=== PATIENT | female | born 1985 | race Caucasian/White ===

== ENCOUNTER 2019-11-19 17:00 | Inpatient (IN) | payer OTHER ==
[2019-11-19 17:46] VITALS: BMI 30.2
[2019-11-19] MEDS ORDERED: AMPICILLIN - 2 GM in SODIUM CHLORIDE 100 ML IVPB ONE (17:52)
[2019-11-19] MEDS ORDERED: ELECTROLYTE-148 SOLN 1,000 ML IV SCH (18:00)
[2019-11-19] MEDS ORDERED: CITRIC ACID/SODIUM CITRATE 30 ML UNIT-DOSE CUP PO ONE (18:34)
--- NOTE | 2019-11-19 18:41 | HP ---
Past Medical History - Primary Care Physician PCP:: Michael Luke - Admission Chief Complaint: 39 weeks, previous c/s, ROM , labor , variable decel. AMA History of Present Illness: 34 yo f g 89 yo f one vaginal delivery followed by c/s , was scheduled for repeat c/s c/o ROM, clear fluid , with irregular contraction . requesting repeat c/s, no bleeding, no fever History Source: Patient Limitations to Obtaining History: No Limitations - Past Medical History ...: 4 ...Para: 2 ...Term: 2 ...Spon : 1 ...LMP: 02/15/19 ... Weeks Gestation by Dates: 39.4 ...EDC by Dates: 11/22/19 - Past Surgical History Past Surgical History: Yes: Hx Myomectomy: No Hx Transabdominal Cerclage: No - Smoking History Smoking history: Never smoked Have you smoked in the past 12 months: No Aproximately how many cigarettes per day: 0 - Alcohol/Substance Use Hx Alcohol Use: No - Social History Usual Living Arrangement: Yes: With Spouse History of Recent Travel: No Home Medications - Allergies Allergies/Adverse Reactions: Allergies Allergy/AdvReac Type Severity Reaction Status Date / Time No Known Allergies Allergy Verified 11/19/19 17:49 - Home Medications Home Medications: Ambulatory Orders Tablet 1 tab PO DAILY 11/19/19 Review of Systems - Review of Systems Constitutional: reports: No Symptoms Eyes: reports: No Symptoms HENT: reports: No Symptoms Neck: reports: No Symptoms Cardiovascular: reports: No Symptoms Respiratory: reports: No Symptoms Gastrointestinal: reports: No Symptoms Genitourinary: reports: No Symptoms Breasts: reports: No Symptoms Reported Musculoskeletal: reports: No Symptoms Integumentary: reports: No Symptoms Neurological: reports: No Symptoms Endocrine: reports: No Symptoms Hematology/Lymphatic: reports: No Symptoms Psychiatric: reports: No Symptoms Physical Exam - Maternity Vital Signs: Vital Signs Temperature 98.3 F 11/19/19 17:37 Pulse Rate 82 11/19/19 17:37 Respiratory Rate 18 11/19/19 17:37 Blood Pressure 126/80 11/19/19 17:37 O2 Sat by Pulse Oximetry (%) Constitutional: Yes: Well Nourished, No Distress, Calm Eyes: Yes: WNL, Conjunctiva Clear, EOM Intact HENT: Yes: WNL, Atraumatic, Normocephalic Neck: Yes: WNL, Supple, Trachea Midline Cardiovascular: Yes: WNL, Regular Rate and Rhythm Breast(s): Yes: WNL - Abdominal Exam/OB Fundal Height: 38 Number of Fetuses: Single Presentation: Vertex Contractions: Yes Regularity: Irregular Intensity: Mild/Mod Monitor Mode: External Heart Rate Location: [facility] Category: II Accelerations: Non-Uniform Decelerations: None - Vaginal Exam/OB Vaginal Bleediing: No Speculum Exam: No Dilatation (cm): 2 cm Effacement (%): 25 Amniotic Membrane Status: Ruptured Nitrazine Test: Positive Amniotic Fluid: Yes: Clear Presentation: Vertex/Position Station: -3 - Physical Exam Musculoskeletal: Yes: WNL Extremities: Yes: WNL Edema: Yes Edema: LLE: Trace, RLE: Trace Deep Tendon Reflex Grade: Normal +2 Psychiatric: Yes: WNL Hemorrhage Risk Assessment - Risk Factors Medium Risk Factors: Yes: Prior , uterine surgery,or multiple laparotomies Risk Score: 1 Risk Level: Medium Risk Problem List - Problems (1) with 39 completed weeks gestation Code(s): Z3A.39 - 39 WEEKS GESTATION OF (2) membrane rupture Code(s): DTF3884 - (3) Previous section complicating Code(s): O34.219 - MATERNAL CARE FOR UNSP TYPE SCAR FROM PREVIOUS DEL (4) Advanced maternal age (AMA) in Code(s): HVT5888 - Assessment/Plan admit . FHM GBS positive request of repeat c/s iv amp.
[2019-11-19 19:45] LABS: BASO % 0.7 % (0-2.0); HEMATOCRIT 35.6 % (32.4-45.2); HEMOGLOBIN 11.7 GM/dL (10.7-15.3); LYMPH % 17.8 % (8-40); MCH 28.6 pg (25.7-33.7); MCHC 32.9 g/dl (32.0-36.0); MEAN CELL VOLUME 86.8 fl (80-96); MEAN PLT VOLUME 9.4 fl (7.5-11.1); MONO % 4.1 % (3.8-10.2); NEUT % 77.4 % (42.8-82.8); PLATELET COUNT 137 K/MM3 (134-434); RDW 17.3 % (11.6-15.6); WHITE BLOOD COUNT 3.9 K/mm3 (4.0-10.0)
[2019-11-19 20:05] LABS: CALCIUM 8.4 mg/dL (8.5-10.1); CREATININE 0.8 mg/dL (0.55-1.3)
[2019-11-19 20:09] LABS: INR 0.91 (0.83-1.09); PROTHROMBIN TIME (PATIENT) 10.7 SEC (9.7-13.0)
[2019-11-19 20:12] LABS: ACTIVATED PTT 32.5 SECONDS (25.2-36.5)
[2019-11-19] MEDS ORDERED: OXYTOCIN 20 UNITS in 0.9% NS 20 UNIT/1,000 ML INFUS.BAG IV ONE (20:34)
[2019-11-19] MEDS ORDERED: morphine SULFATE/PF 0.5 MG/ML (2cc Syringe - QUVA) ONE (20:38)
[2019-11-19] MEDS ORDERED: ceFAZolin SODIUM 1 GM VIAL ONE (20:45)
[2019-11-19] MEDS ORDERED: PHENYLEPHRINE HCL 10 MG/1 ML SINGLE DOSE VIAL ONE (20:49)
[2019-11-19] MEDS ORDERED: OXYTOCIN 10 UNITS/ML VIAL ONE (20:53)
[2019-11-19] MEDS ORDERED: KETOROLAC TROMETHAMINE 30 MG/1 ML VIAL ONE (21:03)
[2019-11-19] MEDS ORDERED: ONDANSETRON 4 MG/2 ML VIAL IVPUSH PRN (21:32)
[2019-11-19] MEDS ORDERED: oxyCODONE HCL 5 MG TABLET PO PRN ×2 (21:37)
[2019-11-19] MEDS ORDERED: BENZOCAINE 20% 57 GM BOTTLE TP PRN (21:37)
[2019-11-19] MEDS ORDERED: SIMETHICONE 80 MG TAB.CHEW (FP) PO PRN (21:37)
[2019-11-19] MEDS ORDERED: BENZOCAINE 28 GM HEMORRHOIDAL OINTMENT PR PRN (21:37)
[2019-11-19] MEDS ORDERED: IBUPROFEN 600 MG TABLET (FP) PO PRN (21:37)
[2019-11-19] MEDS ORDERED: WITCH HAZEL 50% (TUCKS) 40 PAD/JAR PAD TP PRN (21:37)
[2019-11-19] MEDS ORDERED: diphenhydrAMINE HCL 25 MG CAPSULE (FP) PO PRN (21:37)
[2019-11-19] MEDS ORDERED: METHYLERGONOVINE MALEATE 0.2 MG/1 ML AMP IM PRN (21:37)
--- NOTE | 2019-11-19 21:42 | OP ---
Operative Note - Note: Operative Date: 11/19/19 Pre-Operative Diagnosis: 39 weeks, previous c/s , rom, labor Operation: repeat LST c/s Findings: live baby boy 9/9. direct OP. clear fluid Post-Operative Diagnosis: Same as Pre-op [employer] Consultant: Michael Luke Anesthesia: Spinal Specimens Removed: placenta Estimated Blood Loss (mls): 500 Drains & Tubes with Location: [facility] Blood Volume Replaced (mls): 0 Operative Report Dictated: Yes
[2019-11-19] MEDS ORDERED: OXYTOCIN 20 UNITS in 0.9% NS 20 UNIT/1,000 ML INFUS.BAG IV SCH (21:45)
[2019-11-19] MEDS ORDERED: IBUPROFEN 600 MG TABLET (FP) PO SCH (21:45)
[2019-11-19] MEDS ORDERED: DEXTROSE 5%-LACTATED RINGERS 1,000 ML IV SCH (21:45)
[2019-11-19] MEDS ORDERED: IBUPROFEN 800 MG/8 ML IJ IVPB ONE (23:01)
[2019-11-19] MEDS: IBUPROFEN 800 MG/8 ML IJ IVPB PRN (23:08)
[2019-11-20] MEDS: IBUPROFEN 800 MG/8 ML IJ IVPB PRN ×2 (01:00→07:40)
[2019-11-20] MEDS ORDERED: OXYTOCIN 20 UNITS in 0.9% NS 20 UNIT/1,000 ML INFUS.BAG IV ONE ×2 (01:03→09:18)
[2019-11-20] MEDS ORDERED: IBUPROFEN 800 MG/8 ML IJ IVPB ONE (07:35)
[2019-11-20 08:38] LABS: BASO % 0.4 % (0-2.0); EOS % 0.1 % (0-4.5); HEMATOCRIT 31.9 % (32.4-45.2); HEMOGLOBIN 10.6 GM/dL (10.7-15.3); LYMPH % 15.7 % (8-40); MCH 28.9 pg (25.7-33.7); MCHC 33.4 g/dl (32.0-36.0); MEAN CELL VOLUME 86.7 fl (80-96); MEAN PLT VOLUME 9.7 fl (7.5-11.1); MONO % 4.3 % (3.8-10.2); NEUT % 79.5 % (42.8-82.8); PLATELET COUNT 122 K/MM3 (134-434); RBC 3.68 M/mm3 (3.60-5.2); RDW 17.3 % (11.6-15.6); WHITE BLOOD COUNT 5.7 K/mm3 (4.0-10.0)
[2019-11-20] MEDS: ACETAMINOPHEN 325 MG TABLET (FP) PO SCH (08:48)
[2019-11-20] MEDS ORDERED: ACETAMINOPHEN 325 MG TABLET (FP) PO PRN (09:40)
[2019-11-20] MEDS: ENOXAPARIN NA (PORCINE) 40 MG/0.4 ML DISP.SYRIN SQ SCH (10:09)
--- NOTE | 2019-11-20 12:29 | PN ---
Progress Note (short form) - Note Progress Note: POD #1 s/p C/S with Duramorph. Doing well, baby. Denies puritus, nausea or uncontrolled pain or DRISCOLL. All questions answered.
--- NOTE | 2019-11-20 18:42 | PN ---
Progress Note (short form) - Note Progress Note: pod 1 s/p c/s doing well CBC, BMP 11/20/19 07:52 11/19/19 19:30 Last Vital Signs Temp Pulse Resp BP Pulse Ox 98.4 F 60 20 114/17 L 99 11/20/19 15:26 11/20/19 15:26 11/20/19 18:00 11/20/19 15:26 11/19/19 22:15 abdomen soft, no distension , no cva uterus firm lochia mild no calf tenderness plan ambulate, advance diet pain management Problem List - Problems (1) with 39 completed weeks gestation Code(s): Z3A.39 - 39 WEEKS GESTATION OF (2) membrane rupture Code(s): DFN8139 - (3) Previous section complicating Code(s): O34.219 - MATERNAL CARE FOR UNSP TYPE SCAR FROM PREVIOUS DEL (4) Advanced maternal age (AMA) in Code(s): SDU7873 -
[2019-11-20] MEDS ORDERED: BISACODYL 10 MG SUPP.RECT PR PRN (21:37)
[2019-11-20] MEDS ORDERED: CEFAZOLIN 1 GM/D5W 1 GM/50 ML BAG IVPB SCH (22:45)
[2019-11-21] MEDS: ENOXAPARIN NA (PORCINE) 40 MG/0.4 ML DISP.SYRIN SQ SCH (10:01)
--- NOTE | 2019-11-21 13:22 | PN ---
Progress Note (short form) - Note Progress Note: pod2 s/p c/s ,doing well, no c/o . passing gas CBC, BMP 11/20/19 07:52 11/19/19 19:30 Last Vital Signs Temp Pulse Resp BP Pulse Ox 98.4 F 77 20 138/74 99 11/21/19 09:00 11/21/19 09:00 11/21/19 09:00 11/21/19 09:00 11/19/19 22:15 abdomen soft, no distension, no cva uterus firm, non tender lochia mild no calf tenderness plan ambulate , pain management plan for d/c home in am Problem List - Problems (1) with 39 completed weeks gestation Code(s): Z3A.39 - 39 WEEKS GESTATION OF (2) membrane rupture Code(s): NZZ5472 - (3) Previous section complicating Code(s): O34.219 - MATERNAL CARE FOR UNSP TYPE SCAR FROM PREVIOUS DEL (4) Advanced maternal age (AMA) in Code(s): LGT0696 -
[2019-11-21] MEDS ORDERED: SENNOSIDES/DOCUSATE COMBO (SENNA PLUS) TABLET (UD) PO PRN (22:00)
--- NOTE | 2019-11-22 06:22 | DS ---
Physical Exam-PRINT OPERATOR Vital Signs: Vital Signs Temperature 99 F 11/21/19 20:49 Pulse Rate 92 H 11/21/19 20:49 Respiratory Rate 20 11/21/19 20:49 Blood Pressure 133/80 11/21/19 20:49 O2 Sat by Pulse Oximetry (%) 99 11/19/19 22:15 Constitutional: Yes: Well Nourished, No Distress, Calm Eyes: Yes: WNL, Conjunctiva Clear, EOM Intact HENT: Yes: WNL, Atraumatic, Normocephalic Neck: Yes: WNL, Supple, Trachea Midline Cardiovascular: Yes: WNL Respiratory: Yes: WNL Gastrointestinal: Yes: WNL ...Rectal Exam: Yes: WNL Renal/: Yes: WNL Internal Exam Deferred: Yes ....Post : Yes: Uterus firm, Uterus non-tender, Slight lochia rubra Breast(s): Yes: WNL Musculoskeletal: Yes: WNL Extremities: Yes: WNL Integumentary: Yes: WNL Wound/Incision: Yes: Clean/Dry, Well Approximated, Sutures Intact Neurological: Yes: WNL, Alert, Oriented ...Motor Strength: WNL Psychiatric: Yes: WNL, Alert, Oriented Labs: CBC, BMP 11/20/19 07:52 11/19/19 19:30 Delivery - Delivery Section: Primary, Low Flap Transverse Type of Anesthesia: Spinal EBL (cc): 500 Delivery, Single - Stages of Labor Date 1st Stage Initiatied: 11/19/19 Time 1st Stage Initiated: 11:00 Date of Delivery: 11/19/19 Time of Delivery: 20:54 Time Placenta Delivered: 20:56 Placenta: Yes: Expressed - Condition of Certified Dialysis Technician/Funeral Professional Present: Yes Name: Macy Hill Gender: Male Weight: 7 lb 9 oz Position: OP Total Hours ROM (Hrs/Mins): 9h 54m - 1 Minute Total Score: 9 5 Minutes Total Score: 9 - [place] Feeding Plan Initial Plan: Elected not to breastfeed exclusively throughout hospitalization Discharge Summary Problems reviewed: Yes Reason For Visit: LABOR ADMIT Current Active Problems Advanced maternal age (AMA) in (Acute) membrane rupture (Acute) with 39 completed weeks gestation (Acute) Previous section complicating (Acute) Procedures: Principal: primary LST c/s Hospital Course: no complication Plan of Treatment: follow up HR care 1 week Condition: Good - Instructions Diet, Activity, Other Instructions: regular diet, no intercourse, follow up HR care 2 weeks, if fever, pain, heavy vaginal bleeding call md Referrals: Michael Luke MD [Staff Physician] - Disposition: HOME - Home Medications Comprehensive Discharge Medication List: Ambulatory Orders Tablet 1 tab PO DAILY 11/19/19 Ibuprofen [Motrin -] 600 mg PO QID #28 tablet 11/21/19 Miscellaneous Medical Supply [Breast Pump, Electronic] 1 each NR ASDIR #1 unit 11/21/19
[2019-11-22 08:53] LABS: BASO % 0.2 % (0-2.0); EOS % 0.1 % (0-4.5); HEMATOCRIT 38.7 % (32.4-45.2); HEMOGLOBIN 12.7 GM/dL (10.7-15.3); LYMPH % 14.7 % (8-40); MCH 28.7 pg (25.7-33.7); MCHC 32.9 g/dl (32.0-36.0); MEAN CELL VOLUME 87.4 fl (80-96); MEAN PLT VOLUME 8.5 fl (7.5-11.1); MONO % 5.5 % (3.8-10.2); NEUT % 79.5 % (42.8-82.8); PLATELET COUNT 229 K/MM3 (134-434); RBC 4.43 M/mm3 (3.60-5.2); RDW 16.9 % (11.6-15.6); WHITE BLOOD COUNT 8.5 K/mm3 (4.0-10.0)
[2019-11-22] MEDS: ENOXAPARIN NA (PORCINE) 40 MG/0.4 ML DISP.SYRIN SQ SCH (10:27)
[2019-11-22 11:38] VITALS: BP 114/72; PULSE 98; TEMP 98.3
--- NOTE | 2019-11-22 14:47 | OP ---
DATE OF OPERATION: 11/19/2019 PREOPERATIVE DIAGNOSIS: 39 weeks, previous section, rupture of membranes, labor. POSTOPERATIVE DIAGNOSIS: 39 weeks, previous section, rupture of membranes, labor. PROCEDURE: Repeat lower segment transverse section. SURGEON: Amber Luke MD BORDER PATROL AGENT: TROY Stone ANESTHESIA: Spinal anesthesia with Roderick Blancas MD FINDINGS: A live baby boy, 9, 9, direct OP, clear fluid. ESTIMATED BLOOD LOSS: 500 mL OPERATIVE REPORT: Patient was taken to the operating room. Under adequate spinal anesthesia abdomen and perineum were prepped and draped. Pfannenstiel abdominal skin incision was made. Abdominal wall was cut [id number] until peritoneum was exposed and incised. Upon entering the abdominal cavity lower uterine segment was identified and uterovesical fold of peritoneum established. Bladder was pushed down. Then with the lower Danae retractor in the pelvis, a low transverse uterine incision was made. The incision was extended laterally with bandage scissors. Amniotic sac was entered. Clear fluid. Head delivered from direct OP position, live baby boy, 9 and 9. Placenta was delivered manually. Uterine cavity was cleaned of all remaining tissue. Uterine incision was closed in 2 layers, first layer with 0 Biosyn continuous suture, the second layer with 0 Biosyn imbricating the first layer. Bladder flap was closed with 0 Biosyn continuous suture. Both tubes and ovaries checked and were normal. No active bleeding was seen. All the lap pads, sponge counts, instrument counts were correct. Peritoneum was closed with 0 Biosyn continuous suture. Muscles were brought together with interrupted suture of 0 Biosyn. Fascia was closed with 0 Biosyn continuous suture, subcutaneous fat interrupted suture of 0 Biosyn, and the skin was closed with chase. Patient tolerated procedure well, left the OR in good condition. AMBER LUKE M.D. [id number]
--- NOTE | 2019-11-23 14:31 | PATH ---
Surgical Pathology Report Patient Name: NORM JOHNSON Med. Rec. #: [id number] /Age/Gender: 1985 (Age: 34) / F Account: [id number] Location: [facility] OBS/OPERATIONS EXAMINER Taken: 11/19/2019 Received: 11/20/2019 Reported: 11/23/2019 Physicians: Michael Luke M.D. Specimen(s) Received PLACENTA Clinical History Previous failed Final Diagnosis PLACENTA, SECTION: 544 G THIRD TRIMESTER PLACENTA WITH TRIVASCULAR UMBILICAL CORD AND UNREMARKABLE PLACENTAL MEMBRANES. Electronically Signed Gina Perez M.D. Gross Description The specimen is received fresh labeled placenta and is a 544 gram, 19.0 x 13.5 x 3.3 cm. placenta with attached membranes and umbilical cord. The attached membranes are sim, translucent with focal opacities and insert marginally. The umbilical cord measures 18 cm. in length and averages 1.2 cm. in diameter. The cord inserts eccentrically, 5 cm. to the nearest margin. No true knots or strictures are identified. Cut surface of the umbilical cord reveals 3 vessels. The surface is espino blue with moderate fibrin deposition and appropriate caliber vessels. The maternal surface is red-brown with focal defects. Sectioning reveals red-brown, spongy parenchyma. No lesions are identified. Freight Air Brake Fitter sections are submitted in three cassettes as follows: 1- membrane rolls and umbilical cord; 2-3- full thickness sections of placenta. /11/20/2019 saudi/11/20/2019
== END 2019-11-22 12:40 | disposition home or self-care (01) | DRG 540 ==
LOC: JDEL 17:00 → JLDR 17:01 → J3W 11-20 14:50
PROVIDERS: ADMIT Obstetrics & Gynecology; ATTEND Obstetrics & Gynecology
PROC: 10D00Z1 Extraction of Products of Conception, Low, Open Approach (ICD-10-PCS; principal; 2019-11-19)
DX: O34.211 Maternal care for low transverse scar from previous cesarean delivery (principal); O09.523 Supervision of elderly multigravida, third trimester; O42.92 Full-term premature rupture of membranes, unspecified as to length of time between rupture and onset of labor; Z3A.39 39 weeks gestation of pregnancy; Z37.0 Single live birth
CPT/HCPCS: 36415; 36600; 80048; 82803; 85025; 85610; 85730; 86780; 86850; 86900; 86901; 87389; 88307-TC

== ENCOUNTER 2022-07-26 04:21 | Day surgery (SDC) | payer OTHER ==
[2022-07-25 16:23] VITALS: BMI 29.8
[2022-07-26] MEDS ORDERED: LIDOCAINE HCL 1%, 10 MG/ML (20ML VIAL) ONE (13:19)
[2022-07-26] MEDS ORDERED: BUPIVACAINE HCL/PF 0.5% (5MG/ML) 10 ML VIAL ONE ×2 (13:19→15:48)
[2022-07-26] MEDS ORDERED: oxyCODONE HCL 5 MG TABLET PO PRN (13:42)
[2022-07-26] MEDS ORDERED: ONDANSETRON 4 MG/2 ML VIAL IVPUSH PRN (13:42)
[2022-07-26] MEDS ORDERED: LACTATED RINGERS SOLUTION 1,000 ML IV SCH (13:45)
[2022-07-26] MEDS ORDERED: PROPOFOL 20 ML ONE ×4 (13:46→15:49)
[2022-07-26] MEDS ORDERED: KETOROLAC TROMETHAMINE 30 MG/1 ML VIAL ONE (13:46)
[2022-07-26] MEDS ORDERED: FENTANYL CITRATE/PF 50 MCG/ML VIAL ONE ×3 (13:46→17:04)
[2022-07-26] MEDS ORDERED: MIDAZOLAM HCL 2 MG/2 ML SINGLE DOSE VIAL ONE (13:46)
[2022-07-26] MEDS ORDERED: ceFAZolin SODIUM 1 GM VIAL IVPB ONE (14:15)
[2022-07-26] MEDS ORDERED: KETAMINE HCL 500 MG/10 ML VIAL ONE (14:52)
[2022-07-26] MEDS ORDERED: LIDOCAINE HCL 1%, 10 MG/ML (20ML VIAL) INF ONE (15:17)
[2022-07-26] MEDS ORDERED: BUPIVACAINE HCL/PF 0.5% (5MG/ML) 10 ML VIAL IJ ONE ×2 (15:18)
[2022-07-26] MEDS: FENTANYL CITRATE/PF 50 MCG/ML VIAL IVPUSH PRN ×2 (16:56→17:06)
[2022-07-26 17:48] VITALS: TEMP 97.4
[2022-07-26 19:48] VITALS: BP 120/60; PULSE 80; RESP 16
== END 2022-07-26 19:20 | disposition home or self-care (01) ==
LOC: JASU-SURG 04:21
PROVIDERS: ATTEND Podiatrist Foot & Ankle Surgery
PROC: 0QBP0ZZ Excision of Left Metatarsal, Open Approach (ICD-10-PCS; principal; 2022-07-26 14:00)
DX: M20.12 Hallux valgus (acquired), left foot (principal); M25.375 Other instability, left foot
CPT/HCPCS: 20900; 28297; 28299; C1713; 73630-TC-LT; 76000-TC-FY; 81025; 88304-TC; 88311-TC; 94760

== ENCOUNTER 2025-05-04 12:06 | Emergency (ER) | payer OTHER ==
[2025-05-04 12:12] VITALS: BP 127/68; PULSE 77; RESP 18; TEMP 98.1; BMI 29.6
[2025-05-04] MEDS ORDERED: MECLIZINE HCL 25 MG TABLET (FP) ONE (13:01)
[2025-05-04] MEDS: SODIUM CHLORIDE 1,000 ML IV STA (13:10)
[2025-05-04] MEDS: MECLIZINE HCL 25 MG TABLET (FP) PO ONE (13:10)
[2025-05-04 13:23] LABS: MCHC 31.6 g/dl (32.2-35.5); MEAN CELL VOLUME 88.6 fl (79.4-94.8); MEAN PLT VOLUME 10.5 fl (9.4-12.3); RDW 13.5 % (12.1-16.8)
[2025-05-04 13:28] LABS: EPI CELLS >36 /uL (0-25.1); HCG,QUALITATIVE URINE Negative; HYALINE CASTS 1 /uL (0-3.1); URINE APPEARANCE CLOUDY; URINE BACTERIA 4737 /uL (0-1359); URINE BILIRUBIN NEGATIVE (NEGATIVE); URINE COLOR YELLOW; URINE GLUCOSE (UA) NEGATIVE (NEGATIVE); URINE KETONE NEGATIVE (NEGATIVE); URINE LEUK ESTERASE 1+ (NEGATIVE); URINE NITRITE NEGATIVE (NEGATIVE); URINE PROTEIN TRACE (NEGATIVE); URINE RBC 20 /uL (0-23.9); URINE UROBILINOGEN 0.2 mg/dL (0.2-1.0); URINE WBC 26 /uL (0-25.8)
[2025-05-04 13:40] LABS: GLUCOSE,RANDOM 124.0 mg/dL (74-106)
[2025-05-04 13:41] LABS: TOT PROT 8.1 g/dl (6.4-8.2)
[2025-05-04 13:43] LABS: ALK PHOS 83.0 U/L (40-150)
[2025-05-04 13:46] LABS: CREATININE 0.52 mg/dL (0.55-1.3); SGOT/AST 19.0 U/L (5-34); SGPT/ALT 32.0 U/L (0-55)
[2025-05-04 14:19] LABS: HCV DIAGNOSTIC IN-HOUSE W/RFLX NON-REACTIVE (NONREACTIVE); HIV INTERPRETATION NEGATIVE (NEGATIVE)
[2025-05-04 14:20] LABS: CO2 19.0 mmol/L (21-32)
== END 2025-05-04 14:26 | disposition home or self-care (01) ==
LOC: JER 12:06
PROC: 3E0337Z Introduction of Electrolytic and Water Balance Substance into Peripheral Vein, Percutaneous Approach (ICD-10-PCS; principal; 2025-05-04)
DX: R42 Dizziness and giddiness (principal)
CPT/HCPCS: 36415; 70450-TC; 80053; 81003; 83735; 84484; 84703; 85025; 86803; 87086; 87389; 93005; 93010; 96360; 99285-25